=== PATIENT | female | born 1935 | race Caucasian/White ===

== ENCOUNTER 2017-09-11 05:56 | Inpatient (IN) | payer OTHER, MEDICARE ==
[2017-08-17 10:11] VITALS: BMI 32.1
[2017-09-11] MEDS ORDERED: SODIUM CHLORIDE 0.9% P/F 10 ML VIAL IJ ONE (07:03)
[2017-09-11] MEDS ORDERED: MIDAZOLAM HCL 2 MG/2 ML SINGLE DOSE VIAL ONE (07:03)
[2017-09-11] MEDS ORDERED: BUPIVACAINE HCL/PF (5 MG/ML) 30 ML VIAL IJ ONE (07:03)
[2017-09-11] MEDS ORDERED: BUPIVACAINE LIPOSOME/PF (EXPAREL) 266 MG/20 ML VIAL ONE (07:03)
[2017-09-11] MEDS ORDERED: CEFAZOLIN 1 GM/D5W 1 GRAM/50 ML BAG IVPB ONE (07:33)
[2017-09-11] MEDS ORDERED: TRANEXAMIC ACID 1000 MG/10 ML VIAL IVPUSH ONE (07:33)
--- NOTE | 2017-09-11 07:33 | HP ---
History & Physical Update - History History: No Change - Physical Physical: No Change - Assessment Assessment: No Change - Plan Plan: No Change (no change since visit on 09/23/[address] Martinez)
[2017-09-11] MEDS ORDERED: ceFAZolin SODIUM 1 GM VIAL ONE ×2 (07:37→08:07)
[2017-09-11] MEDS ORDERED: VANCOMYCIN 1,000 MG VIAL (RESTRICTED TO ID ONLY) ONE (07:37)
[2017-09-11] MEDS ORDERED: ROPIVICAINE 0.2%/MORPH PF/KETOROLAC - 51ML DISP.SYRINGE IA ONE ×3 (07:39→09:40)
[2017-09-11] MEDS ORDERED: DEXAMETHASONE SOD PHOSPHATE 4 MG/1 ML VIAL ONE (08:07)
[2017-09-11] MEDS ORDERED: ONDANSETRON 4 MG/2 ML VIAL ONE (08:07)
[2017-09-11] MEDS ORDERED: SUCCINYLCHOLINE CHLORIDE 200 MG/10 ML VIAL ONE (08:08)
[2017-09-11] MEDS ORDERED: BUPIVACAINE HCL/PF 0.5% (5MG/ML) 10 ML VIAL ONE (08:08)
[2017-09-11] MEDS ORDERED: PROPOFOL 20 ML ONE ×2 (08:08→09:57)
[2017-09-11] MEDS ORDERED: ePHEDrine SULFATE 50 MG/1 ML AMPULE ONE (09:22)
[2017-09-11] MEDS ORDERED: ONDANSETRON 4 MG/2 ML VIAL IVPUSH PRN ×2 (10:27→12:40)
[2017-09-11] MEDS ORDERED: MAGNESIUM HYDROX 2400MG/30ML ORAL SUSPENSION 30 ML CUP PO PRN (10:27)
[2017-09-11] MEDS ORDERED: MAG HYDROX/AL HYDROX/SIMETH 30 ML UNIT-DOSE CUP PO PRN (10:27)
[2017-09-11] MEDS ORDERED: LACTATED RINGERS SOLUTION 1,000 ML IV SCH (10:30)
--- NOTE | 2017-09-11 10:40 | SURG ---
Surgery Ham Smoker Note Ham Smoker: Carlotta Aguirre PA-C Date of Service: 09/11/17 Diagnosis: Right knee OA Procedure: Right knee total Makoplasty I was present for the entirety of the operative procedure. For further detail, please refer to operative report. Visit type - Case Type Case Type: Scheduled - Emergency Emergency Visit: No - New patient This patient is new to me today: Yes Date on this admission: 09/11/17
--- NOTE | 2017-09-11 11:05 | OP ---
Operative Note - Note: Operative Date: 09/11/17 Pre-Operative Diagnosis: right knee osteoarthritis Operation: Right total knee Makoplasty Post-Operative Diagnosis: Same as Pre-op Surgeon: Ryan Freeman [employer] Sales Supervisor: Carlotta Aguirre Anesthesiologist/SPECIAL EDUCATION SUPERVISOR: Vazquez Wilson Anesthesia: Spinal, Local (block) Specimens Removed: right distal femur, right proximal tibia, Estimated Blood Loss (mls): 150 Drains & Tubes with Location: vac drain at right lateral thigh Fluid Volume Replaced (mls): 1,600 Operative Report Dictated: Yes
[2017-09-11] MEDS ORDERED: PROMETHAZINE HCL 25 MG/1 ML VIAL IVPB PRN (12:40)
[2017-09-11] MEDS ORDERED: oxyCODONE HCL 5 MG TABLET ONE (13:19)
[2017-09-11] MEDS: ACETAMINOPHEN 325 MG TABLET (FP) PO SCH ×2 (13:20→20:01)
[2017-09-11] MEDS: oxyCODONE HCL 5 MG TABLET PO PRN ×3 (13:20→21:19)
[2017-09-11] MEDS: CELECOXIB 200 MG CAPSULE PO SCH (13:23)
--- NOTE | 2017-09-11 14:40 | PN ---
Physical Exam: SUBJECTIVE: Patient seen and examined, patient is resting comfortably in bed, reports slight paresthesia to the right lower extremity OBJECTIVE:Patient is a 82 y/o female with a past medical history of htn,gerd, hld, dm, OA. Patient is s/p right TKR, spinal anesthesia, post op day 0 Vital Signs Period Temp Pulse Resp BP Sys/Marlow Pulse Ox Last 24 Hr 97.7 F-98.8 F 53-62 16-18 114-131/51-77 96-99 GENERAL: The patient is awake, alert, and fully oriented, in no acute distress. HEAD: Normal with no signs of trauma. EYES: PERRL, extraocular movements intact, sclera anicteric, conjunctiva clear. No ptosis. ENT: Ears normal, nares patent, oropharynx clear without exudates, moist mucous membranes. NECK: Trachea midline, full range of motion, supple. LUNGS: Breath sounds equal, clear to auscultation bilaterally, no wheezes, no crackles, no accessory muscle use. HEART: Regular rate and rhythm, S1, S2, 3/6 systolic murmur, rub or gallop. ABDOMEN: Soft, nontender, nondistended, normoactive bowel sounds, no guarding, no rebound, no hepatosplenomegaly, no masses. EXTREMITIES: 2+ pulses, warm, well-perfused, no edema. RIGHT LOWER EXTREMITY: scd/jolanta, less than 3 secon NEUROLOGICAL: Cranial nerves II through XII grossly intact. Normal speech, gait not observed. PSYCH: Normal mood, normal affect. SKIN: Warm, dry, normal turgor, no rashes or lesions noted Active Medications Generic Name Dose Route Start Last Admin Trade Name Freq PRN Reason Stop Dose Admin Acetaminophen 650 mg 09/11/17 12:45 09/11/17 13:20 Tylenol - PO 09/14/17 12:44 650 mg Q6H SANDY Administration Al Hydroxide/Mg Hydroxide 30 ml 09/11/17 10:27 Mylanta Oral Suspension - PO Q4H PRN DYSPEPSIA Amlodipine Besylate 5 mg 09/12/17 10:00 Norvasc - PO DAILY SANDY Aspirin 325 mg 09/12/17 10:00 Asa - PO BID SANDY Atorvastatin Calcium 40 mg 09/11/17 22:00 Lipitor - PO HS SANDY Celecoxib 200 mg 09/11/17 12:00 09/11/17 13:23 Celebrex - PO 200 mg DAILY [facility] Administration Cyanocobalamin 1,000 mcg 09/12/17 10:00 Vitamin B12 - PO DAILY [facility] Fentanyl 50 mcg 09/11/17 12:40 Sublimaze Injection - IVPUSH [id number] PRN PAIN-PACU ORDER X 4 DOSES ONLY Ferrous Sulfate 325 mg 09/11/17 17:30 Feosol - PO BIDWM [facility] Cefazolin Sodium 1 gram in 50 mls @ 100 mls/hr 09/11/17 17:30 Ancef 1 Gm Premixed Ivpb - IVPB 09/12/17 01:59 Q8H [facility] Lactated Ringer's 1,000 mls @ 100 mls/hr 09/11/17 10:30 Lactated Ringers Solution IV 09/12/17 06:00 ASDIR [facility] Lisinopril 20 mg 09/12/17 10:00 Prinivil PO DAILY [facility] Magnesium Hydroxide 30 ml 09/11/17 10:27 Milk Of Magnesia - PO PRN PRN CONSTIPATION Metoprolol Succinate 50 mg 09/11/17 22:00 Toprol Xl - PO BID [facility] Multivitamins/Minerals/Vitamin C 1 tab 09/12/17 10:00 Tab-A-Vit - PO DAILY [facility] Imipramine Hcl 25 Mg 0 mg 09/12/17 10:00 PO DAILY [facility] Ondansetron HCl 4 mg 09/11/17 10:27 Zofran Injection IVPUSH Q6H PRN NAUSEA Oxycodone HCl 5 mg 09/11/17 12:40 09/11/17 13:20 Roxicodone - PO 5 mg Q3H PRN Administration PAIN LEVEL 1-5 Oxycodone HCl 10 mg 09/11/17 12:40 Roxicodone - PO Q3H PRN PAIN LEVEL 6-10 Pantoprazole Sodium 40 mg 09/12/17 10:00 Protonix - PO DAILY [facility] Promethazine HCl 12.5 mg 09/11/17 12:40 Phenergan Injection - IVPB Q6H PRN NAUSEA-FOR RESCUE AFTER 15 MIN Senna/Docusate Sodium 2 tablet 09/11/17 22:00 Pericolace - PO BID [facility] Valsartan 160 mg 09/12/17 10:00 Diovan - PO DAILY [facility] ASSESSMENT/PLAN: 1)MS right knee replacement, post op day 0 -pt as per ortho - incentive spirometer - prn pain medication 2) cardiovascular hypertension - continue home medications, strict monitoring of b/p q4h - echo 03/18-->normal LV, normal ef, moderte mvr - mbi 08/17-->lv normal, small mild ischemia, small anteroapical wall defect compatible with ischemia f/e/n - low sodium diet -replete electrolytes prn ppx - asa as per ortho - protonix - scd/jolanta - PT dispo: pt requires inpatient admission Visit type - Emergency Visit Emergency Visit: No - New Patient This patient is new to me today: Yes Date on this admission: 09/14/17 - Critical Care Critical Care patient: No - Discharge Referral Referred to [facility] Med P.C.: No
[2017-09-11] MEDS: CEFAZOLIN 1 GM/D5W 1 GRAM/50 ML BAG IVPB SCH (17:25)
[2017-09-11] MEDS: FERROUS SO4 325 MG TABLET (FP) PO SCH (17:26)
[2017-09-11] MEDS: ATORVASTATIN CA 40 MG TABLET (FP) PO SCH (21:20)
[2017-09-11] MEDS: SENNOSIDES/DOCUSATE COMBO (SENNA PLUS) TABLET (UD) PO SCH (21:20)
[2017-09-11] MEDS ORDERED: CAPTOPRIL 50 MG PO SCH (22:00)
[2017-09-12] MEDS: ACETAMINOPHEN 325 MG TABLET (FP) PO SCH ×4 (01:35→19:00)
[2017-09-12] MEDS: CEFAZOLIN 1 GM/D5W 1 GRAM/50 ML BAG IVPB SCH (01:35)
[2017-09-12] MEDS: oxyCODONE HCL 5 MG TABLET PO PRN ×3 (05:31→22:27)
--- NOTE | 2017-09-12 07:40 | OP ---
DATE OF OPERATION: 09/11/2017 PREOPERATIVE DIAGNOSIS: Right knee osteoarthritis. POSTOPERATIVE DIAGNOSIS: Right knee osteoarthritis. OPERATION PERFORMED: Right cemented posterior stabilized total knee arthroplasty with MAKOplasty Director Of Market Research. SURGEON: Ryan Antonio MD SKI EDGE PAINTER: VARUN Orantes TYPE OF ANESTHESIA: Spinal and block DISPOSITION: Patient returned to the recovery room in stable condition. COMPONENTS USED: [place] [employer], size 3 posterior stabilized femur, size 3 universal tibia, 11-mm posterior stabilized articular insert, and 29-mm patella. DRAINS PLACED: One Hemovac. ESTIMATED BLOOD LOSS: Less than 50 mL. TOTAL TOURNIQUET TIME: 96 minutes. FINDINGS: Severe end-stage arthritis INDICATIONS FOR THE PROCEDURE: Patient failed non-operative treatment for right knee arthritis and was indicated for right total knee replacement. Preoperatively in the waiting area as well as the office, I had a long discussion with the patient regarding the plan, the expected outcome, and the risks, benefits, and alternatives of surgery. The risks include, but are not limited to, infection which may require future surgery and removal of implants, bleeding which may require a transfusion, damage to nerves, arteries, veins, tendons, muscles, and other adjacent structures leading to possible numbness, weakness, decreased function, and/or possible need for surgical repair. Also discussed was the possibility of intraoperative and postoperative fractures, implant loosening, stiffness, need for extensive therapy and need for revision surgery for a variety of reasons. We also discussed blood clots and other possible medical complications. This was discussed at length, and consent was obtained. PROCEDURE IN DETAIL: Patient was taken to the OR and placed on the operating table in the supine position. Following induction of spinal anesthesia, a well-padded tourniquet was placed high in the right thigh, and the right lower extremity was prepped and draped in a sterile fashion. A time-out was performed to confirm the correct side. We verified that the side was marked and confirmed the correct patient and procedure to be performed as well as that the patient received the appropriate preoperative antibiotics and tranexamic acid and had a compression device on the non-operative leg. The tourniquet was elevated followed by a midline incision and medial parapatellar arthrotomy checkpoints were placed in the femur and the tibia. Then, through stab incisions in the mid thigh and mid tibia, and then blunt dissection, we placed our femoral and tibial arrays. The patient was registered using anatomic landmarks and range of motion, and the joint was stressed in order to finalize our preoperative plan. While protecting the surrounding soft tissues, we used a Swoodoo robot to make all our bony cuts. We then placed laminar spinning mule operator sequentially in lateral and medial joint spaces. Posterior aspects, cruciate ligaments, and menisci were all excised. We then used a box closing machine operator and cut the box. We placed our trials. With trials in place, we had full extension, were well balanced with regards to varus and valgus stress, and had full flexion and the patella tracked centrally. The patella was then measured to be 22 mm, and we used a Swoodoo guide and cut off 8.25 mm of bone. We then reconstructed with a 29-mm button and performed a lateral double cut. With the patellar trial in place, the patella tracked centrally. There was good stability, soft tissue tension, range of motion. Trials were then removed after a 3-minute soak with a diluted Betadine solution. The knee was copiously irrigated. We did a posterior capsular injection with a pain cocktail at this time. Sequential supplementation was performed starting with the tibia and then the femur. Excess cement was removed. We inserted the final poly and it seated flush. The knee was brought to full extension, and the patella was cemented. Excess cement was removed. We copiously irrigated the knee, injected the remainder of the pain cocktail. When all cement was hardened, the knee had good stability, soft tissue tension, range of motion, and patella tracked centrally. Deep drain was placed. The arthrotomy was closed with 0 Vicryl and 0 V-Loc, 2-0 Vicryl and evens were used for the skin. The knee was wrapped in a dry sterile compression dressing, and the tourniquet was released. Compartments were the procedure. Pulses were palpated. Patient was transferred to the recovery room in stable condition. WOUND CLASSIFICATION: Clean. COMPLICATIONS: None. SPECIMENS: None. Of note, prior to closure, checkpoints and arrays were all removed and accounted for. RYAN ANTONIO M.D. DARELL/[id number]
[2017-09-12] MEDS: FERROUS SO4 325 MG TABLET (FP) PO SCH ×2 (08:27→17:30)
--- NOTE | 2017-09-12 08:47 | PN ---
Physical Exam: SUBJECTIVE: Patient seen and examined at the bedside. Sitting up eating breakfast. In no acute distress OBJECTIVE: Vital Signs Period Temp Pulse Resp BP Sys/Marlow Pulse Ox Last 24 Hr 97.7 F-98.8 F 53-65 16-19 107-131/45-77 96-99 GENERAL: The patient is awake, alert, and fully oriented, in no acute distress. HEAD: Normal with no signs of trauma. EYES: PERRL, extraocular movements intact, sclera anicteric, conjunctiva clear. No ptosis. ENT: Ears normal, nares patent, oropharynx clear without exudates, moist mucous membranes. NECK: Trachea midline, full range of motion, supple. LUNGS: Breath sounds equal, clear to auscultation bilaterally, no wheezes HEART: Regular rate and rhythm ABDOMEN: Soft, nontender, nondistended, normoactive bowel sounds, no guarding, no rebound, no hepatosplenomegaly, no masses. RIGHT LOWER EXTREMITY: scd/jolanta NEUROLOGICAL: Cranial nerves II through XII grossly intact. Normal speech, gait not observed. PSYCH: Normal mood, normal affect. SKIN: Warm, dry, normal turgor, no rashes or lesions noted Active Medications Generic Name Dose Route Start Last Admin Trade Name Freq PRN Reason Stop Dose Admin Acetaminophen 650 mg 09/11/17 12:45 09/12/17 07:13 Tylenol - PO 09/14/17 12:44 650 mg Q6H SANDY Administration Al Hydroxide/Mg Hydroxide 30 ml 09/11/17 10:27 Mylanta Oral Suspension - PO Q4H PRN DYSPEPSIA Amlodipine Besylate 5 mg 09/12/17 10:00 Norvasc - PO DAILY [facility] Aspirin 325 mg 09/12/17 10:00 Asa - PO BID SANDY Atorvastatin Calcium 40 mg 09/11/17 22:00 09/11/17 21:20 Lipitor - PO 40 mg HS SANDY Administration Celecoxib 200 mg 09/11/17 12:00 09/11/17 13:23 Celebrex - PO 200 mg DAILY [facility] Administration Cyanocobalamin 1,000 mcg 09/12/17 10:00 Vitamin B12 - PO DAILY [facility] Fentanyl 50 mcg 09/11/17 12:40 Sublimaze Injection - IVPUSH [id number] PRN PAIN-PACU ORDER X 4 DOSES ONLY Ferrous Sulfate 325 mg 09/11/17 17:30 09/12/17 08:27 Feosol - PO 325 mg BIDWM SANDY Administration Lisinopril 20 mg 09/12/17 10:00 Prinivil PO DAILY [facility] Magnesium Hydroxide 30 ml 09/11/17 10:27 Milk Of Magnesia - PO PRN PRN CONSTIPATION Metoprolol Succinate 50 mg 09/11/17 22:00 09/11/17 21:20 Toprol Xl - PO 50 mg BID SANDY Administration Multivitamins/Minerals/Vitamin C 1 tab 09/12/17 10:00 Tab-A-Vit - PO DAILY [facility] Imipramine Hcl 25 Mg 0 mg 09/12/17 10:00 PO DAILY [facility] Ondansetron HCl 4 mg 09/11/17 10:27 Zofran Injection IVPUSH Q6H PRN NAUSEA Oxycodone HCl 5 mg 09/11/17 12:40 09/11/17 17:26 Roxicodone - PO 5 mg Q3H PRN Administration PAIN LEVEL 1-5 Oxycodone HCl 10 mg 09/11/17 12:40 09/12/17 05:31 Roxicodone - PO 10 mg Q3H PRN Administration PAIN LEVEL 6-10 Pantoprazole Sodium 40 mg 09/12/17 10:00 Protonix - PO DAILY [facility] Promethazine HCl 12.5 mg 09/11/17 12:40 Phenergan Injection - IVPB Q6H PRN NAUSEA-FOR RESCUE AFTER 15 MIN Senna/Docusate Sodium 2 tablet 09/11/17 22:00 09/11/17 21:20 Pericolace - PO 2 tablet BID [facility] Administration Valsartan 160 mg 09/12/17 10:00 Diovan - PO DAILY [facility] ASSESSMENT/PLAN: Patient is a 82 year old female with a past medical history of hypertension, HLD , DMII and OA Patient is s/p right TKR, spinal anesthesia, post op day 1. Surgery: Right knee replacement, post op day 1: Incentive spirometer, pain management. bowel regimen. SCD/TEDs. Ortho following. Cards: Hypertension: BP controlled. fen low salt diet monitor electrolytes PO intake adequate Prophy scds Protonix bowel regimen PT per surgery Visit type - Emergency Visit Emergency Visit: Yes ED Registration Date: 09/11/17 Care time: The patient presented to the Emergency Department on the above date and was hospitalized for further evaluation of their emergent condition. - New Patient This patient is new to me today: Yes Date on this admission: 09/12/17 - Critical Care Critical Care patient: No - Discharge Referral Referred to [facility] Med P.C.: No
[2017-09-12] MEDS: ASPIRIN 325 MG TABLET PO SCH ×2 (09:10→22:28)
[2017-09-12] MEDS: CELECOXIB 200 MG CAPSULE PO SCH (09:10)
[2017-09-12] MEDS: VALSARTAN 160 MG TABLET (UD) PO SCH (09:10)
[2017-09-12] MEDS: IMIPRAMINE HCL 25 MG PO SCH (09:11)
[2017-09-12] MEDS: amLODIPine BESYLATE 5 MG TABLET (FP) PO SCH (09:11)
[2017-09-12] MEDS: SENNOSIDES/DOCUSATE COMBO (SENNA PLUS) TABLET (UD) PO SCH ×2 (09:11→22:28)
[2017-09-12] MEDS: LISINOPRIL 20 MG TABLET (FP) PO SCH (09:11)
[2017-09-12] MEDS: PANTOPRAZOLE 40 MG TABLET (FP) PO SCH (09:11)
[2017-09-12] MEDS: MULTIVITAMINS (DAILY MVI) TABLET (FP) PO SCH (09:12)
[2017-09-12] MEDS: CYANOCOBALAMIN 1,000 MCG TABLET (FP) PO SCH (09:12)
[2017-09-12 09:18] LABS: ANION GAP 9 (8-16); BLOOD UREA NITROGEN 23 mg/dl (7-18); CALCIUM 8.7 mg/dl (8.4-10.2); CHLORIDE 101 mmol/L (98-107); CO2 25 mmol/L (22-28); CREATININE 1.1 mg/dl (0.6-1.3); GLUCOSE,RANDOM 131 mg/dl (74-106); POTASSIUM 4.9 mmol/L (3.5-5.1); SODIUM 135 mmol/L (136-145)
[2017-09-12 09:26] LABS: HEMATOCRIT 33.5 % (32.4-45.2); HEMOGLOBIN 11.6 GM/dl (10.7-15.3); MCH 33.8 pg (25.7-33.7); MCHC 34.5 g/dl (32.0-36.0); MEAN PLT VOLUME 10.1 fl (7.5-11.1); PLATELET COUNT 139 K/MM3 (134-434); RBC 3.42 M/mm3 (3.60-5.2); RDW 12.1 % (11.6-15.6); WHITE BLOOD COUNT 10.6 K/mm3 (4.0-10.8)
[2017-09-12] MEDS ORDERED: PATIENT'S OWN MEDICATION (NON-FORMULARY) (Olmesartan Medoxomil 20 MG) PO SCH (10:00)
[2017-09-12] MEDS ORDERED: PT OWN MED DRAWER 7, Y5N ONE (11:07)
[2017-09-12] MEDS: ATORVASTATIN CA 40 MG TABLET (FP) PO SCH (22:28)
[2017-09-12] MEDS: INSULIN SLIDING SCALE (NOVOLOG) 1 VIAL SQ SCH (22:33)
[2017-09-13] MEDS: ACETAMINOPHEN 325 MG TABLET (FP) PO SCH ×3 (00:10→16:03)
[2017-09-13] MEDS: oxyCODONE HCL 5 MG TABLET PO PRN ×3 (01:51→16:04)
[2017-09-13 05:59] VITALS: BP 100/47; PULSE 56; TEMP 97.6
[2017-09-13] MEDS: INSULIN SLIDING SCALE (NOVOLOG) 1 VIAL SQ SCH ×2 (07:38→16:03)
[2017-09-13] MEDS ORDERED: PT OWN MED DRAWER 7, Y5N ONE (09:34)
[2017-09-13] MEDS: CELECOXIB 200 MG CAPSULE PO SCH (09:35)
[2017-09-13] MEDS: ASPIRIN 325 MG TABLET PO SCH (09:35)
[2017-09-13] MEDS: amLODIPine BESYLATE 5 MG TABLET (FP) PO SCH (09:36)
[2017-09-13] MEDS: CYANOCOBALAMIN 1,000 MCG TABLET (FP) PO SCH (09:36)
[2017-09-13] MEDS: MULTIVITAMINS (DAILY MVI) TABLET (FP) PO SCH (09:36)
[2017-09-13] MEDS: PANTOPRAZOLE 40 MG TABLET (FP) PO SCH (09:36)
[2017-09-13] MEDS: VALSARTAN 160 MG TABLET (UD) PO SCH (09:37)
[2017-09-13] MEDS: FERROUS SO4 325 MG TABLET (FP) PO SCH (09:37)
[2017-09-13] MEDS: LISINOPRIL 20 MG TABLET (FP) PO SCH (09:38)
[2017-09-13] MEDS: SENNOSIDES/DOCUSATE COMBO (SENNA PLUS) TABLET (UD) PO SCH (09:38)
[2017-09-13] MEDS: IMIPRAMINE HCL 25 MG PO SCH (09:39)
[2017-09-13 09:55] LABS: HEMATOCRIT 33.1 % (32.4-45.2); HEMOGLOBIN 11.2 GM/dl (10.7-15.3); MCH 33.3 pg (25.7-33.7); MCHC 33.8 g/dl (32.0-36.0); MEAN CELL VOLUME 98.4 fl (80-96); PLATELET COUNT 142 K/MM3 (134-434); RBC 3.37 M/mm3 (3.60-5.2); RDW 12.3 % (11.6-15.6); WHITE BLOOD COUNT 9.9 K/mm3 (4.0-10.8)
--- NOTE | 2017-09-13 15:35 | DS ---
Physical Exam: SUBJECTIVE: Patient seen and examined OBJECTIVE: Vital Signs Period Temp Pulse Resp BP Sys/Marlow Pulse Ox Last 24 Hr 97.6 F-98.2 F 56-60 18-20 100-129/47-52 95-97 PHYSICAL EXAM GENERAL: The patient is awake, alert, and fully oriented, in no acute distress. HEAD: Normal with no signs of trauma. EYES: PERRL, extraocular movements intact, sclera anicteric, conjunctiva clear. ENT: Ears normal, nares patent, oropharynx clear without exudates, moist mucous membranes. NECK: Trachea midline, full range of motion, supple. LUNGS: Breath sounds equal, clear to auscultation bilaterally, no wheezes, no crackles, no accessory muscle use. HEART: Regular rate and rhythm, S1, S2 without murmur, rub or gallop. ABDOMEN: Soft, nontender, nondistended, normoactive bowel sounds, no guarding, no rebound, no hepatosplenomegaly, no masses. EXTREMITIES: 2+ pulses, warm, well-perfused, no edema. NEUROLOGICAL: Cranial nerves II through XII grossly intact. Normal speech, gait not observed. PSYCH: Normal mood, normal affect. SKIN: Warm, dry, normal turgor, no rashes or lesions noted. LABS Laboratory Results - last 24 hr 09/12/17 09/13/17 09/13/17 22:31 07:00 07:09 WBC 9.9 RBC 3.37 L Hgb 11.2 Hct 33.1 MCV 98.4 H MCH 33.3 MCHC 33.8 RDW 12.3 Plt Count 142 MPV 11.0 POC Glucometer 112 80 HOSPITAL COURSE: Date of Admission:09/11/17 Date of Discharge: 09/13/17 Discharge Summary Reason For Visit: RIGHT KNEE OSTEOARTHRITIS Condition: Stable - Instructions Diet, Activity, Other Instructions: Dr. Woods Discharge Instructions for Knee Replacement Post Operative Instructions Physical activity Call Dr Iniguez office to confirm your outpatient physical therapy. Use assistive devices for ambulation at all times. Weight bearing as tolerated on your surgical side. Do not put pillow under knee, put pillow under heel when lying down Wound care Leave your surgical dressing in place. Do not change the dressing until seen by your surgeon in the office. No baths or showers. Do not submerge your incision. Do not apply any ointments or lotions to your incision. Please call the office if your dressing is soiled/dirty or is falling off. Apply Graduated Compression Stockings (TEDS) to both lower extremities - remove daily for hygiene ONLY. Diet There are no dietary restrictions. Eat healthy, high-fiber foods. Drink 6 to 8 glasses of liquid each day. This will assist in keeping your bowels are regular. Pain management Any pain prescription medication ordered should be taken as prescribed for moderate to severe pain. Do not take additional Tylenol while taking Percocet. Take Aspirin 325 mg two times a day for a total of 6 weeks to prevent blood clots. Call for any of the following: Severe pain not relieved by medication Fever of 101 or higher Excessive bleeding or drainage on dressing Inability to urinate If you experience chest pain or shortness of breath, please seek emergency care immediately. Please call the office to confirm your post-op appointment for the week following surgery. - Home Medications Comprehensive Discharge Medication List: Ambulatory Orders Aspirin [Aspirin EC] 81 mg PO DAILY 12/30/13 Atorvastatin Ca [Lipitor] 40 mg PO HS 12/30/13 Cyanocobalamin [Vitamin B12 -] 1,000 mcg PO DAILY 12/30/13 Metoprolol Succinate [Toprol Xl] 50 mg PO BID 12/30/13 Olmesartan Medoxomil [Benicar -] 20 mg PO DAILY 12/30/13 Omeprazole [Prilosec (RX)] 20 mg PO DAILY 12/30/13 Amlodipine Besylate [Norvasc -] 5 mg PO DAILY 08/17/17 Captopril 50 mg PO BID 08/17/17 Imipramine HCl [Tofranil] 25 mg PO DAILY 08/17/17 Meloxicam [Mobic] 15 mg PO DAILY 08/17/17 - Discharge Referral Referred to [facility] Med P.C.: No
--- NOTE | 2017-09-14 20:12 | EKG ---
Test Reason : Blood Pressure : / mmHG Vent. Rate : 062 BPM Atrial Rate : 062 BPM P-R Int : 174 ms QRS Dur : 154 ms QT Int : 440 ms P-R-T Axes : 025 -29 067 degrees QTc Int : 446 ms NORMAL SINUS RHYTHM LEFT BUNDLE BRANCH BLOCK ABNORMAL ECG WHEN COMPARED WITH ECG OF 26-MAY-2006 17:35, QRS DURATION HAS INCREASED BORDERLINE CRITERIA FOR LATERAL INFARCT ARE NOW PRESENT T WAVE INVERSION NOW EVIDENT IN LATERAL LEADS Confirmed by MD DANUTA, EMLO ([id number]) on 09/14/2017 8:11:59 PM Referred By: Ryan Freeman Confirmed By:ELMO TIPTON MD
--- NOTE | 2017-09-16 14:10 | PATH ---
Surgical Pathology Report Patient Name: ROSEMARY PRESTON Med. Rec. #: [id number] /Age/Gender: 1935 (Age: 82) / F Account: [id number] Location: [facility] MED-SURG Taken: 09/11/2017 Received: 09/11/2017 Reported: 09/16/2017 Physicians: Ryan Freeman M.D. Specimen(s) Received RIGHT KNEE BONE Clinical History Right knee osteoarthritis Final Diagnosis KNEE BONE, RIGHT, TOTAL KNEE REPLACEMENT: DEGENERATIVE JOINT DISEASE. Electronically Signed Carlotta Fisher M.D. Gross Description Received in formalin labeled "right knee bone," is a 12.5 x 10.5 x 2.0 cm. aggregate of multiple portions of bone and soft tissue, consistent with knee bones. There is a 2.0 cm area of eburnation identified. The remaining articular surfaces are mcgregor-yellow and focally granular. The underlying trabecular bone is yellow and hard. Certified Orthotist Practice Manager sections are submitted in one cassette, following decalcification. /09/14/2017
== END 2017-09-13 16:25 | disposition home or self-care (01) | DRG 470 ==
LOC: FM/S 05:56
PROVIDERS: ADMIT Internal Medicine; ATTEND Orthopaedic Surgery
PROC: 8E0YXBZ Computer Assisted Procedure of Lower Extremity (ICD-10-PCS; 2017-09-11)
PROC: 0SRC0J9 Replacement of Right Knee Joint with Synthetic Substitute, Cemented, Open Approach (ICD-10-PCS; principal; 2017-09-11 08:43)
DX: M17.11 Unilateral primary osteoarthritis, right knee (principal); I10 Essential (primary) hypertension; K21.9 Gastro-esophageal reflux disease without esophagitis; E78.5 Hyperlipidemia, unspecified; E11.9 Type 2 diabetes mellitus without complications
CPT/HCPCS: 36415; 73560-TC-RT-FY; 80048; 82962; 85027; 88304-TC; 88311-TC; 93005; 94760; 97116-GP; 97161-GP

== ENCOUNTER 2020-05-10 21:01 | Emergency (ER) | payer OTHER, MEDICARE ==
[2020-05-10 21:16] VITALS: BP 107/43; PULSE 63; TEMP 98.2; BMI 29.2
[2020-05-10] MEDS ORDERED: ACETAMINOPHEN 500 MG TABLET (FP) PO ONE (22:03)
[2020-05-10] MEDS ORDERED: ACETAMINOPHEN 500 MG TABLET (FP) ONE (22:26)
== END 2020-05-10 23:08 | disposition home or self-care (01) ==
LOC: JER 21:01
DX: R10.2 Pelvic and perineal pain (principal)
CPT/HCPCS: 73523-TC-FY; 99283-25

== ENCOUNTER 2020-07-02 13:35 | Inpatient (IN) | payer OTHER, MEDICARE ==
[2020-07-02 17:20] LABS: BASO % 0.7 % (0-2.0); EOS % 0.5 % (0-4.5); HEMATOCRIT 33.1 % (32.4-45.2); HEMOGLOBIN 10.9 GM/dL (10.7-15.3); LYMPH % 10.3 % (8-40); MCH 29.5 pg (25.7-33.7); MEAN CELL VOLUME 89.4 fl (80-96); MEAN PLT VOLUME 8.9 fl (7.5-11.1); MONO % 9.9 % (3.8-10.2); NEUT % 78.6 % (42.8-82.8); PLATELET COUNT 364 K/MM3 (134-434); WHITE BLOOD COUNT 12.4 K/mm3 (4.0-10.0)
[2020-07-02 17:24] LABS: INR 2.28 (0.83-1.09); PROTHROMBIN TIME (PATIENT) 26.9 SEC (9.7-13.0)
[2020-07-02 17:47] LABS: CHLORIDE 92 mmol/L (98-107); SODIUM 131 mmol/L (136-145)
[2020-07-02 17:49] LABS: CALCIUM 8.7 mg/dL (8.5-10.1)
[2020-07-02 17:50] LABS: ALBUMIN 2.2 g/dl (3.4-5.0); ANION GAP 13 MMOL/L (8-16); BLOOD UREA NITROGEN 34.6 mg/dL (7-18); CO2 26 mmol/L (21-32); GLUCOSE,RANDOM 95 mg/dL (74-106)
[2020-07-02 17:53] LABS: CREATININE 1.1 mg/dL (0.55-1.3); SGOT/AST 77 U/L (15-37); SGPT/ALT 35 U/L (13-61)
[2020-07-02 17:54] LABS: BILIRUBIN,TOTAL 0.6 mg/dL (0.2-1); TOT PROT 6.4 g/dl (6.4-8.2)
[2020-07-02 17:55] LABS: ALK PHOS 174 U/L (45-117)
[2020-07-02 17:58] LABS: N-TERMINAL BNP 2387.3 pg/ml (5-450)
[2020-07-02] MEDS ORDERED: POTASSIUM CHLORIDE TABS 20 MEQ TABLET.ER (FP) PO ONE ×2 (18:33→18:36)
[2020-07-02] MEDS ORDERED: VANCOMYCIN 1 GM in D5W (PRE-DOCKED) 1,000 MG/250 ML IVPB ONE (19:01)
[2020-07-02] MEDS ORDERED: PIPERACILLIN/TAZOB 3.375 GM 3.375 GM in DEXTROSE 5%-WATER - 50 ML IVPB ONE (19:02)
[2020-07-02 19:13] LABS: CALCIUM 8.8 mg/dL (8.5-10.1)
[2020-07-02 19:14] LABS: BLOOD UREA NITROGEN 34.4 mg/dL (7-18); MAGNESIUM 1.5 mg/dL (1.8-2.4)
[2020-07-02 19:17] LABS: CREATININE 1.1 mg/dL (0.55-1.3)
[2020-07-02] MEDS ORDERED: PIPERACILLIN/TAZOB 3.375 GM 3.375 GM/50 ML BAG IVPB ONE (19:55)
[2020-07-02] MEDS ORDERED: MAGNESIUM 1GM/D5W - 1 GM/100 ML IVPB IVPB ONE ×2 (20:46→21:12)
[2020-07-02] MEDS ORDERED: VANCOMYCIN 1 GRAM (PRE-DOCKED) 1,000 MG/250 ML BAG IVPB ONE (20:46)
[2020-07-02] MEDS ORDERED: MAGNESIUM SULFATE IN WATER 2 GM/50 ML IVPB IVPB ONE (21:12)
[2020-07-03 01:39] VITALS: BMI 29.2
[2020-07-03] MEDS ORDERED: PIPERACILLIN/TAZOBACTAM 3.375 GM VIAL IVPB ONE ×2 (03:29→08:45)
[2020-07-03] MEDS ORDERED: DEXTROSE 5%-WATER - 50 ML IVPB ONE ×3 (03:29→16:43)
[2020-07-03] MEDS: PIPERACILLIN/TAZOB 3.375 GM 3.375 GM in DEXTROSE 5%-WATER - 50 ML IVPB SCH ×2 (04:00→09:52)
[2020-07-03] MEDS ORDERED: PIPERACILLIN/TAZOB 3.375 GM 3.375 GM in DEXTROSE 5%-WATER - 50 ML IVPB SCH (04:00)
[2020-07-03] MEDS: ACETAMINOPHEN 325 MG TABLET (FP) PO PRN ×2 (04:45→16:14)
[2020-07-03 07:20] LABS: BASO % 0.5 % (0-2.0); EOS % 0.8 % (0-4.5); HEMATOCRIT 30.8 % (32.4-45.2); HEMOGLOBIN 10.5 GM/dL (10.7-15.3); LYMPH % 9.8 % (8-40); MCH 30.4 pg (25.7-33.7); MEAN CELL VOLUME 89.3 fl (80-96); MEAN PLT VOLUME 8.5 fl (7.5-11.1); MONO % 8.8 % (3.8-10.2); NEUT % 80.1 % (42.8-82.8); PLATELET COUNT 335 K/MM3 (134-434); RBC 3.45 M/mm3 (3.60-5.2); RDW 15.4 % (11.6-15.6); WHITE BLOOD COUNT 10.9 K/mm3 (4.0-10.0)
[2020-07-03 07:55] LABS: BLOOD UREA NITROGEN 24.5 mg/dL (7-18); CALCIUM 8.6 mg/dL (8.5-10.1)
[2020-07-03 07:58] LABS: CREATININE 0.9 mg/dL (0.55-1.3)
[2020-07-03 07:59] LABS: BILIRUBIN,TOTAL 0.8 mg/dL (0.2-1)
[2020-07-03] MEDS ORDERED: COLCHICINE 0.6 MG CAP PO ONE (08:45)
[2020-07-03] MEDS ORDERED: POTASSIUM CHLORIDE TABS 20 MEQ TABLET.ER (FP) PO ONE (09:45)
[2020-07-03] MEDS: LOSARTAN POTASSIUM 50 MG TABLET PO SCH (09:47)
[2020-07-03] MEDS: IMIPRAMINE HCL 25 MG TABLET (NON FORMULARY) PO SCH (09:47)
[2020-07-03 09:53] LABS: ERYTHROCYTE SEDIMENTATION RATE 93 mm/hr (0-30)
[2020-07-03] MEDS ORDERED: PATIENT'S OWN MEDICATION (NON-FORMULARY) (Olmesartan Medoxomil 20 MG Tablet) PO SCH (10:00)
[2020-07-03 10:34] LABS: URIC ACID 5.3 mg/dL (2.6-7.2)
[2020-07-03] MEDS: PANTOPRAZOLE 20 MG TABLET PO SCH (12:22)
[2020-07-03] MEDS: amLODIPine BESYLATE 5 MG TABLET (FP) PO SCH (12:22)
[2020-07-03] MEDS: APIXABAN 2.5 MG TABLET PO SCH ×2 (16:00→21:08)
[2020-07-03] MEDS ORDERED: ceFAZolin SODIUM 1 GM VIAL ONE (16:43)
[2020-07-03] MEDS: CEFAZOLIN 1 GM in DEXTROSE 5%-WATER - 1 GM/50 ML IVPB IVPB SCH (17:42)
[2020-07-03] MEDS ORDERED: VANCOMYCIN/WATER 1,250 MG/250 ML BAG IVPB SCH (21:00)
[2020-07-03] MEDS ORDERED: VANCOMYCIN/WATER BAGS 1,250 MG/250 ML BAG IVPB ONE (21:00)
[2020-07-03] MEDS: ATORVASTATIN CA 40 MG TABLET (FP) PO SCH (21:08)
[2020-07-04] MEDS ORDERED: ceFAZolin SODIUM 1 GM VIAL ONE ×3 (01:42→17:02)
[2020-07-04] MEDS ORDERED: DEXTROSE 5%-WATER - 50 ML IVPB ONE ×3 (01:42→17:02)
[2020-07-04] MEDS: CEFAZOLIN 1 GM in DEXTROSE 5%-WATER - 1 GM/50 ML IVPB IVPB SCH ×3 (03:10→17:04)
[2020-07-04 07:47] LABS: BASO % 0.5 % (0-2.0); EOS % 1.9 % (0-4.5); HEMATOCRIT 32.9 % (32.4-45.2); HEMOGLOBIN 11.3 GM/dL (10.7-15.3); LYMPH % 11.5 % (8-40); MCH 30.4 pg (25.7-33.7); MCHC 34.2 g/dl (32.0-36.0); MEAN CELL VOLUME 88.7 fl (80-96); MEAN PLT VOLUME 8.2 fl (7.5-11.1); MONO % 7.5 % (3.8-10.2); NEUT % 78.6 % (42.8-82.8); PLATELET COUNT 436 K/MM3 (134-434); RBC 3.71 M/mm3 (3.60-5.2); RDW 15.9 % (11.6-15.6)
[2020-07-04 08:16] LABS: ALBUMIN 2.1 g/dl (3.4-5.0); BLOOD UREA NITROGEN 19.9 mg/dL (7-18); CALCIUM 8.8 mg/dL (8.5-10.1); MAGNESIUM 1.9 mg/dL (1.8-2.4)
[2020-07-04 08:19] LABS: CREATININE 0.8 mg/dL (0.55-1.3)
[2020-07-04 08:20] LABS: URIC ACID 4.1 mg/dL (2.6-7.2)
[2020-07-04 08:21] LABS: BILIRUBIN,TOTAL 0.8 mg/dL (0.2-1); TOT PROT 6.1 g/dl (6.4-8.2)
[2020-07-04] MEDS ORDERED: PT OWN MED DRAWER 7, Y5N ONE ×2 (09:07→18:06)
[2020-07-04] MEDS: LOSARTAN POTASSIUM 50 MG TABLET PO SCH (09:12)
[2020-07-04] MEDS: APIXABAN 5 MG TABLET PO SCH ×2 (09:13→21:22)
[2020-07-04] MEDS: amLODIPine BESYLATE 5 MG TABLET (FP) PO SCH (09:13)
[2020-07-04] MEDS: PANTOPRAZOLE 20 MG TABLET PO SCH (09:14)
[2020-07-04] MEDS: IMIPRAMINE HCL 25 MG TABLET (NON FORMULARY) PO SCH (09:15)
[2020-07-04] MEDS: COLCHICINE 0.6 MG TAB PO SCH (09:17)
[2020-07-04] MEDS: ATORVASTATIN CA 40 MG TABLET (FP) PO SCH (21:22)
[2020-07-05] MEDS ORDERED: ceFAZolin SODIUM 1 GM VIAL ONE ×3 (01:04→17:43)
[2020-07-05] MEDS ORDERED: DEXTROSE 5%-WATER - 50 ML IVPB ONE ×3 (01:04→17:43)
[2020-07-05] MEDS: CEFAZOLIN 1 GM in DEXTROSE 5%-WATER - 1 GM/50 ML IVPB IVPB SCH ×3 (01:12→17:46)
[2020-07-05 08:15] LABS: BASO % 0.7 % (0-2.0); EOS % 3.2 % (0-4.5); HEMATOCRIT 34.5 % (32.4-45.2); HEMOGLOBIN 11.8 GM/dL (10.7-15.3); LYMPH % 20.2 % (8-40); MCH 29.9 pg (25.7-33.7); MCHC 34.1 g/dl (32.0-36.0); MEAN CELL VOLUME 87.7 fl (80-96); MEAN PLT VOLUME 7.9 fl (7.5-11.1); MONO % 6.8 % (3.8-10.2); NEUT % 69.1 % (42.8-82.8); PLATELET COUNT 462 K/MM3 (134-434); RBC 3.93 M/mm3 (3.60-5.2); RDW 16.1 % (11.6-15.6); WHITE BLOOD COUNT 7.4 K/mm3 (4.0-10.0)
[2020-07-05 08:35] LABS: ALBUMIN 2.1 g/dl (3.4-5.0); CALCIUM 8.5 mg/dL (8.5-10.1)
[2020-07-05 08:36] LABS: BLOOD UREA NITROGEN 21.7 mg/dL (7-18)
[2020-07-05 08:37] LABS: BILIRUBIN,TOTAL 0.4 mg/dL (0.2-1); TOT PROT 6.1 g/dl (6.4-8.2)
[2020-07-05] MEDS ORDERED: PT OWN MED DRAWER 7, Y5N ONE (08:37)
[2020-07-05 08:39] LABS: CREATININE 0.8 mg/dL (0.55-1.3)
[2020-07-05 09:34] LABS: ERYTHROCYTE SEDIMENTATION RATE 97 mm/hr (0-30)
[2020-07-05] MEDS: COLCHICINE 0.6 MG TAB PO SCH (10:07)
[2020-07-05] MEDS: APIXABAN 5 MG TABLET PO SCH ×2 (10:09→21:25)
[2020-07-05] MEDS: LOSARTAN POTASSIUM 50 MG TABLET PO SCH (10:09)
[2020-07-05] MEDS: IMIPRAMINE HCL 25 MG TABLET (NON FORMULARY) PO SCH (10:09)
[2020-07-05] MEDS: PANTOPRAZOLE 20 MG TABLET PO SCH (10:09)
[2020-07-05] MEDS: amLODIPine BESYLATE 5 MG TABLET (FP) PO SCH (10:09)
[2020-07-05] MEDS ORDERED: FERRIC CARBOXYMALTOSE 750 MG in SODIUM CHLORIDE 250 ML IVPB ONE (12:00)
[2020-07-05] MEDS: ATORVASTATIN CA 40 MG TABLET (FP) PO SCH (21:25)
[2020-07-06] MEDS ORDERED: ceFAZolin SODIUM 1 GM VIAL ONE ×2 (01:11→08:50)
[2020-07-06] MEDS ORDERED: DEXTROSE 5%-WATER - 50 ML IVPB ONE ×2 (01:11→08:50)
[2020-07-06] MEDS: CEFAZOLIN 1 GM in DEXTROSE 5%-WATER - 1 GM/50 ML IVPB IVPB SCH (01:19)
[2020-07-06 07:00] VITALS: PULSE 69; TEMP 97.4
[2020-07-06 08:23] VITALS: BP 114/68
[2020-07-06] MEDS: COLCHICINE 0.6 MG TAB PO SCH (09:56)
[2020-07-06] MEDS: IMIPRAMINE HCL 25 MG TABLET (NON FORMULARY) PO SCH (09:56)
[2020-07-06] MEDS: amLODIPine BESYLATE 5 MG TABLET (FP) PO SCH (09:58)
[2020-07-06] MEDS: PANTOPRAZOLE 20 MG TABLET PO SCH (09:58)
[2020-07-06] MEDS: LOSARTAN POTASSIUM 50 MG TABLET PO SCH (09:58)
[2020-07-06] MEDS: APIXABAN 5 MG TABLET PO SCH (09:59)
[2020-07-06] MEDS ORDERED: IRON POLYSACCHARIDES 150 MG CAPSULE PO SCH (10:00)
[2020-07-06] MEDS ORDERED: CEPHALEXIN MONOHYDRATE 500 MG CAPSULE (UD) PO SCH (10:00)
== END 2020-07-06 13:54 | disposition home health service (06) | DRG 554 ==
LOC: JER 13:35 → JERBED 18:34 → J4W 07-03 01:05
PROVIDERS: ADMIT Hospitalist; ATTEND Family Medicine
DX: M06.4 Inflammatory polyarthropathy (principal); E87.1 Hypo-osmolality and hyponatremia; L03.113 Cellulitis of right upper limb; I13.0 Hypertensive heart and chronic kidney disease with heart failure and stage 1 through stage 4 chronic kidney disease, or unspecified chronic kidney disease; I48.0 Paroxysmal atrial fibrillation; M10.9 Gout, unspecified; E78.5 Hyperlipidemia, unspecified; N18.9 Chronic kidney disease, unspecified; I50.9 Heart failure, unspecified; I48.91 Unspecified atrial fibrillation; E87.6 Hypokalemia; I44.7 Left bundle-branch block, unspecified; M81.0 Age-related osteoporosis without current pathological fracture; M11.232 Other chondrocalcinosis, left wrist; K57.90 Diverticulosis of intestine, part unspecified, without perforation or abscess without bleeding; E04.9 Nontoxic goiter, unspecified; R60.9 Edema, unspecified; Z88.0 Allergy status to penicillin; Z96.653 Presence of artificial knee joint, bilateral
CPT/HCPCS: 36415; 71045-TC-FY; 73030-TC-RT-FY; 73110-TC-RT-FY; 73130-TC-RT-FY; 73610-TC-LT-FY; 73610-TC-RT-FY; 73630-TC-LT; 73630-TC-RT-FY; 80048; 80053; 82272; 82550; 82607; 82728; 83540; 83550; 83735; 83880; 84484; 84550; 85025; 85610; 85651; 85730; 86140; 87040; 93005; 93010; 93306-TC; 93971; 97116-GP; 97161-GP; 99285-25; C9803; J1439; U0003; U0005